=== PATIENT | female | born 1950 | race Caucasian/White ===

== ENCOUNTER → 2016-05-03 | Outpatient (CLI) | payer OTHER ==
[~2016-05-03] VITALS: Ht 166.4 cm; Wt 63.5 kg
[~2016-05-03] MED LIST: ABILIFY10 MG PO; ABILIFY5 MG PO; ADULT LOW DOSE81 M1 PO; ADVIL,NUPRIN,M200 MG PO; ADVIL200 MG PO; ALPRAZOLAM0.5 MG PO; ANTIOBIOTIC PO; ARIPIPRAZOLE5 MG PO; BACTRIM,SEPT1 TABLET PO; CHEWABLE-VITE1 EACH PO; COLACE100 MG PO; CYMBALTA60 MG PO; DIFLUCAN100 MG PO; DULOXETINE HCL60 MG PO; FOLIC ACID1 MG PO; KEPPRA500 MG PO; LEVAQUIN500 MG PO; MORPHINE SULFAT15 M1 PO; MOTRIN600 MG PO; NICORETTE2 M1 BC; NICOTINE PATCH1 EAC2 TD; OXYCODONE HCL15 MG PO; PANTOPRAZOLE SO40 MG PO; PROTONIX20 MG PO; PROTONIX40 MG PO; TYLENOL EXTRA500 MG PO; VITAMIN C1000 M1 PO; XANAX0.5 MG PO; XARELTO20 MG PO
[2016-05-03 11:14] LABS: EOSINOPHIL (%) 0.7 % (0-5); EOSINOPHIL COUNT 0.1 K/uL (0-0.3); HEMATOCRIT 34.4 % (36.0-46.0); IMMATURE GRANULOCYTE (%) 0.3 % (0.0-0.7); LYMPHOCYTE COUNT 1.5 K/uL (1.0-2.8); MCH 24.6 PG (29.0-34.0); MCHC 31.4 G/DL (30.0-36.0); MCV 78.4 FL (83-99); MONOCYTE (%) 6.4 % (3-12); MONOCYTE COUNT 0.8 K/uL (0-0.8); NEUTROPHIL (%) 81.2 % (45-76); NEUTROPHIL COUNT 10.6 K/uL (1.8-6.4); RBC DIS.WIDTH-CV 23.2 % (11.8-14.6); RBC DIS.WIDTH-SD 64.8 % (39-53); RED BLOOD COUNT 4.39 M/uL (3.80-5.20)
[2016-05-03 11:20] LABS: ANION GAP 16 MEQ/L (2-14); CHLORIDE 104 MEQ/L (99-109); POTASSIUM 4.6 MEQ/L (3.7-5.4); SAMPLE HEMOLYSIS CHECK 0; SAMPLE ICTERIC CHECK 0; SAMPLE LIPEMIA CHECK 0; SODIUM 138 MEQ/L (136-147)
[2016-05-03 11:26] LABS: GFR ESTIMATE (CALCULATED) > 59 mL/min/; GLUCOSE 108 mg/dL (70-99); UREA NITROGEN (BUN) 9 mg/dL (9-23)
[2016-05-03 12:04] LABS: MEAN PLAT.VOLUME 10.3 uM^3 (9.5-12.4); PLAT.SUFFICIENCY ADEQUATE; PLATELET COUNT 260 K/uL (156-360); USER ID CCL
== END | disposition home or self-care (01) ==
LOC: AMB 10:30
PROVIDERS: Anesthesiology
PROC: 0DB58ZX Excision of Esophagus, Via Natural or Artificial Opening Endoscopic, Diagnostic (ICD-10-PCS; principal; 2016-05-03)
DX: K22.2 Esophageal obstruction (principal); B37.81 Candidal esophagitis; K44.9 Diaphragmatic hernia without obstruction or gangrene; J44.9 Chronic obstructive pulmonary disease, unspecified; F17.200 Nicotine dependence, unspecified, uncomplicated; K21.9 Gastro-esophageal reflux disease without esophagitis
CPT/HCPCS: 80048; 85025; 88108; 88305; 88312; B4087

== ENCOUNTER 2017-03-15 10:07 | Day surgery (SDC) | payer OTHER ==
[~2017-03-15] VITALS: Ht 165.1 cm; Wt 62.1 kg
[~2017-03-15 10:07] MED LIST changes: -CHEWABLE-VITE1 EACH PO; +FIBER GUMMIES1 EACH PO; +OXYCODONE HCL10 MG PO; +WOMEN'S DAILY1 EAC2 PO
== END 2017-03-15 11:40 | disposition home or self-care (01) ==
LOC: PAIN 10:07 → SDC 10:15 → PAIN 11:40
DX: M47.812 Spondylosis without myelopathy or radiculopathy, cervical region (principal); M54.2 Cervicalgia; G89.29 Other chronic pain; M79.7 Fibromyalgia; M51.36 Other intervertebral disc degeneration, lumbar region; K21.0 Gastro-esophageal reflux disease with esophagitis; K44.9 Diaphragmatic hernia without obstruction or gangrene; D50.0 Iron deficiency anemia secondary to blood loss (chronic); Z86.718 Personal history of other venous thrombosis and embolism; M43.16 Spondylolisthesis, lumbar region; F17.210 Nicotine dependence, cigarettes, uncomplicated; Z88.0 Allergy status to penicillin
CPT/HCPCS: J1030; J2250; J3010; S0020

== ENCOUNTER 2017-03-24 13:32 | Day surgery (SDC) | payer OTHER ==
[~2017-03-24] VITALS: Ht 165.1 cm; Wt 62.1 kg
== END 2017-03-24 14:51 | disposition home or self-care (01) ==
LOC: PAIN 13:32 → SDC 14:15 → PAIN 14:51
DX: M47.812 Spondylosis without myelopathy or radiculopathy, cervical region (principal); M54.2 Cervicalgia; G89.29 Other chronic pain; M50.321 Other cervical disc degeneration at C4-C5 level; M43.16 Spondylolisthesis, lumbar region; M79.7 Fibromyalgia; M51.36 Other intervertebral disc degeneration, lumbar region; K21.0 Gastro-esophageal reflux disease with esophagitis; D50.0 Iron deficiency anemia secondary to blood loss (chronic); M85.80 Other specified disorders of bone density and structure, unspecified site; Z86.718 Personal history of other venous thrombosis and embolism; Z88.0 Allergy status to penicillin; Z79.891 Long term (current) use of opiate analgesic; F17.200 Nicotine dependence, unspecified, uncomplicated
CPT/HCPCS: J1030; J2250; J3010; S0020

== ENCOUNTER 2017-04-09 19:37 | Emergency (ER) | payer OTHER ==
[~2017-04-09] VITALS: Ht 162.6 cm; Wt 61.7 kg
[2017-04-09 21:28] LABS: ALBUMIN 3.4 g/dL (3.2-4.8); CHLORIDE 107 mEq/L (99-109); POTASSIUM 3.6 mEq/L (3.7-5.4); SODIUM 140 mEq/L (136-147)
[2017-04-09 21:31] LABS: GLUCOSE 125 mg/dL (70-99); TOTAL PROTEIN 7.3 g/dL (6.4-8.3)
[2017-04-09 21:31] LABS: HEMATOCRIT 34.3 % (36.0-46.0); HEMOGLOBIN 11.2 G/DL (11.9-15.5); MCH 26.2 PG (29.0-34.0); MCHC 32.7 G/DL (30.0-36.0); MCV 80.3 FL (83-99); PLATELET COUNT 341 K/uL (156-360); RBC DIS.WIDTH-SD 40.8 % (39-53); RED BLOOD COUNT 4.27 M/uL (3.80-5.20); WHITE BLOOD COUNT 15.2 K/uL (4.1-10.2)
[2017-04-09 21:32] LABS: TOTAL BILIRUBIN 0.2 mg/dL (0.0-1.0)
[2017-04-09 21:33] LABS: SERUM ETHYL ALCOHOL < 10 mg/dL
[2017-04-09 21:34] LABS: ALKALINE PHOSPHATASE 91 IU/L (3-129); CREATININE 0.7 mg/dL (0.6-1.3); GFR ESTIMATE (CALCULATED) > 59 mL/min/
[2017-04-09 21:35] LABS: UREA NITROGEN (BUN) 15 mg/dL (9-23)
[2017-04-09 21:36] LABS: AST (GOT) 10 IU/L (2-34)
[2017-04-09 21:37] LABS: ALT (GPT) 12 IU/L (3-49)
[2017-04-09] MEDS ORDERED: CARAFATE1 GM PO (23:21)
[2017-04-09] MEDS ORDERED: ZITHROMAX Z-PA250 MG PO (23:21)
[2017-04-09 23:30] VITALS: BP 95/66
[2017-04-14] MEDS ORDERED: ZITHROMAX Z-PA250 MG PO (13:44)
== END 2017-04-09 23:50 | disposition home or self-care (01) ==
LOC: EME → EDBD 19:37 → EME 23:50
PROVIDERS: Emergency Medicine
DX: G40.909 Epilepsy, unspecified, not intractable, without status epilepticus (principal); J20.9 Acute bronchitis, unspecified; K44.9 Diaphragmatic hernia without obstruction or gangrene; F17.200 Nicotine dependence, unspecified, uncomplicated; K21.9 Gastro-esophageal reflux disease without esophagitis; M79.7 Fibromyalgia; F32.9 Major depressive disorder, single episode, unspecified; F41.9 Anxiety disorder, unspecified; Z88.0 Allergy status to penicillin; Z88.5 Allergy status to narcotic agent
CPT/HCPCS: 71010; 80053; 83605; 85027; 93005; 99281; 99285; G0480; J7644

== ENCOUNTER 2017-04-12 04:14 | Emergency (ER) | payer OTHER ==
[~2017-04-12] VITALS: Ht 165.1 cm; Wt 59.0 kg
[~2017-04-12 04:14] MED LIST changes: +CARAFATE1 GM PO; +ZITHROMAX Z-PA250 MG PO
[2017-04-12 05:03] LABS: HEMATOCRIT 35.2 % (36.0-46.0); MCH 26.3 PG (29.0-34.0); MCHC 32.4 G/DL (30.0-36.0); MCV 81.1 FL (83-99); MEAN PLAT.VOLUME 10.6 uM^3 (9.5-12.4); PLATELET COUNT 336 K/uL (156-360); RBC DIS.WIDTH-SD 41.3 % (39-53); RED BLOOD COUNT 4.34 M/uL (3.80-5.20)
[2017-04-12 05:06] LABS: ADD MIUA? YES; BILIRUBIN NEGATIVE; BLOOD SMALL; COLOR YELLOW ((YELLOW)); GLUCOSE (STRIP) NEGATIVE; KETONES NEGATIVE; LEUKOCYTES NEGATIVE; NITRITE NEGATIVE; PROTEIN (STRIP) NEGATIVE; UROBILINOGEN 0.2 MG/DL (0.2-1.0)
[2017-04-12 05:15] LABS: BACTERIA RARE /HPF; EPITHELIAL CELLS 1+ /HPF; MUCUS TRACE /LPF; RED BLOOD CELLS 0-5 /HPF (0-5); UCUL ADDED? NO; WHITE BLOOD CELLS 0-5 /HPF (0-5)
[2017-04-12 05:16] LABS: CHLORIDE 106 mEq/L (99-109); POTASSIUM 3.9 mEq/L (3.7-5.4); SODIUM 137 mEq/L (136-147)
[2017-04-12 05:19] LABS: GLUCOSE 120 mg/dL (70-99)
[2017-04-12 05:20] LABS: ANION GAP 9 MEQ/L (2-14)
[2017-04-12 05:22] LABS: ALKALINE PHOSPHATASE 92 IU/L (3-129); GFR ESTIMATE (CALCULATED) > 59 mL/min/
[2017-04-12 05:23] LABS: UREA NITROGEN (BUN) 10 mg/dL (9-23)
[2017-04-12 05:26] LABS: LIPASE 6 U/L (1.0-51.0)
[2017-04-12 05:30] LABS: TOTAL BILIRUBIN 0.3 mg/dL (0.0-1.0)
[2017-04-12] MEDS ORDERED: ZOFRAN4 MG PO (06:53)
[2017-04-12 07:42] VITALS: BP 137/78
[2017-04-14] MEDS ORDERED: ZITHROMAX Z-PA250 MG PO (13:44)
== END 2017-04-12 07:43 | disposition home or self-care (01) ==
LOC: EME 04:14
DX: R11.2 Nausea with vomiting, unspecified (principal); N83.202 Unspecified ovarian cyst, left side; R19.7 Diarrhea, unspecified; M79.7 Fibromyalgia; K21.9 Gastro-esophageal reflux disease without esophagitis; F41.9 Anxiety disorder, unspecified; F32.9 Major depressive disorder, single episode, unspecified; F31.9 Bipolar disorder, unspecified; F17.200 Nicotine dependence, unspecified, uncomplicated; Z86.73 Personal history of transient ischemic attack (TIA), and cerebral infarction without residual deficits; Z88.0 Allergy status to penicillin; Z88.5 Allergy status to narcotic agent
CPT/HCPCS: 74177; 80053; 81003; 83690; 85027; J2765; J3010; S0028

== ENCOUNTER 2017-04-19 14:25 | Day surgery (SDC) | payer OTHER ==
[~2017-04-19] VITALS: Ht 165.1 cm; Wt 58.9 kg
[~2017-04-19 14:25] MED LIST changes: +ZOFRAN4 MG PO
== END 2017-04-19 15:50 | disposition home or self-care (01) ==
LOC: PAIN 14:25 → SDC 15:00 → PAIN 15:50
DX: M47.812 Spondylosis without myelopathy or radiculopathy, cervical region (principal); M54.2 Cervicalgia; G89.29 Other chronic pain; M79.7 Fibromyalgia; K21.9 Gastro-esophageal reflux disease without esophagitis; K21.0 Gastro-esophageal reflux disease with esophagitis; K44.9 Diaphragmatic hernia without obstruction or gangrene; G40.909 Epilepsy, unspecified, not intractable, without status epilepticus; Z86.718 Personal history of other venous thrombosis and embolism; F17.200 Nicotine dependence, unspecified, uncomplicated; Z79.891 Long term (current) use of opiate analgesic; Z88.0 Allergy status to penicillin
CPT/HCPCS: J1030; J2250; J3010; S0020

== ENCOUNTER 2017-04-26 13:24 | Day surgery (SDC) | payer OTHER ==
[~2017-04-26] VITALS: Ht 167 cm; Wt 59.0 kg
== END 2017-04-26 14:42 | disposition home or self-care (01) ==
LOC: PAIN 13:24 → SDC 14:00 → PAIN 14:00
DX: M47.812 Spondylosis without myelopathy or radiculopathy, cervical region (principal); M54.2 Cervicalgia; G89.29 Other chronic pain; K44.9 Diaphragmatic hernia without obstruction or gangrene; F31.9 Bipolar disorder, unspecified; M54.5 Low back pain; Z88.0 Allergy status to penicillin; M79.7 Fibromyalgia; K21.0 Gastro-esophageal reflux disease with esophagitis; G40.909 Epilepsy, unspecified, not intractable, without status epilepticus; Z86.718 Personal history of other venous thrombosis and embolism; Z86.73 Personal history of transient ischemic attack (TIA), and cerebral infarction without residual deficits; Z87.891 Personal history of nicotine dependence
CPT/HCPCS: J1030; J2250; J3010; S0020

== ENCOUNTER 2017-07-05 09:03 | Emergency (ER) | payer OTHER ==
[~2017-07-05] VITALS: Ht 165.1 cm; Wt 67.2 kg
[2017-07-05 10:00] LABS: HEMATOCRIT 24.5 % (36.0-46.0); HEMOGLOBIN 7.4 G/DL (11.9-15.5); MCH 23.1 PG (29.0-34.0); MCHC 30.2 G/DL (30.0-36.0); MCV 76.6 FL (83-99); PLATELET COUNT 324 K/uL (156-360); RBC DIS.WIDTH-CV 18.9 % (11.8-14.6); RBC DIS.WIDTH-SD 53.1 % (39-53); WHITE BLOOD COUNT 9.9 K/uL (4.1-10.2)
[2017-07-05 10:06] LABS: INTER. NORMALIZED RATIO 1.3
[2017-07-05 10:08] LABS: CHLORIDE 106 mEq/L (99-109); POTASSIUM 4.3 mEq/L (3.7-5.4); SODIUM 137 mEq/L (136-147)
[2017-07-05 10:09] LABS: GLUCOSE 122 mg/dL (70-99); PTT 30.7 SEC (25-37)
[2017-07-05 10:13] LABS: CREATININE 0.9 mg/dL (0.6-1.3); GFR ESTIMATE (CALCULATED) > 59 mL/min/
[2017-07-05 10:14] LABS: UREA NITROGEN (BUN) 14 mg/dL (9-23)
[2017-07-05] MEDS ORDERED: XARELTO15 MG PO (11:11)
[2017-07-05 11:30] VITALS: BP 111/70
== END 2017-07-05 11:38 | disposition home or self-care (01) ==
LOC: EME 09:03
PROVIDERS: Nurse Practitioner Acute Care
DX: I82.422 Acute embolism and thrombosis of left iliac vein (principal); D64.9 Anemia, unspecified; K21.9 Gastro-esophageal reflux disease without esophagitis; F41.9 Anxiety disorder, unspecified; Z86.718 Personal history of other venous thrombosis and embolism; Z79.01 Long term (current) use of anticoagulants; Z87.891 Personal history of nicotine dependence; Z88.0 Allergy status to penicillin; Z88.5 Allergy status to narcotic agent
CPT/HCPCS: 80048; 85027; 85610; 85730; 93971; 99281; 99284

== ENCOUNTER 2017-07-06 21:24 | Inpatient (IN) | payer OTHER ==
[~2017-07-06] VITALS: Ht 165.1 cm; Wt 70.0 kg
[~2017-07-06 21:24] MED LIST changes: +XARELTO15 MG PO
[2017-07-06 22:03] LABS: BASOPHIL (%) 0.7 % (0-1); BASOPHIL COUNT 0.1 K/uL (0-0.1); EOSINOPHIL (%) 4.6 % (0-5); EOSINOPHIL COUNT 0.4 K/uL (0-0.3); HEMATOCRIT 24.6 % (36.0-46.0); HEMOGLOBIN 7.3 G/DL (11.9-15.5); IMMATURE GRANULOCYTE (%) 0.3 % (0.0-0.7); LYMPHOCYTE (%) 15.3 % (15-42); LYMPHOCYTE COUNT 1.2 K/uL (1.0-2.8); MCH 22.8 PG (29.0-34.0); MCHC 29.7 G/DL (30.0-36.0); MCV 76.9 FL (83-99); MONOCYTE (%) 8.8 % (3-12); MONOCYTE COUNT 0.7 K/uL (0-0.8); NEUTROPHIL (%) 70.3 % (45-76); NEUTROPHIL COUNT 5.4 K/uL (1.8-6.4); PLATELET COUNT 334 K/uL (156-360); RBC DIS.WIDTH-CV 19.3 % (11.8-14.6); RBC DIS.WIDTH-SD 54.4 % (39-53); WHITE BLOOD COUNT 7.6 K/uL (4.1-10.2)
[2017-07-06 22:09] LABS: INTER. NORMALIZED RATIO 1.3
[2017-07-06 22:16] LABS: CHLORIDE 106 mEq/L (99-109); POTASSIUM 3.7 mEq/L (3.7-5.4); SODIUM 139 mEq/L (136-147)
[2017-07-06 22:18] LABS: GLUCOSE 98 mg/dL (70-99)
[2017-07-06 22:22] LABS: CREATININE 0.8 mg/dL (0.6-1.3); GFR ESTIMATE (CALCULATED) > 59 mL/min/
[2017-07-06 22:23] LABS: UREA NITROGEN (BUN) 13 mg/dL (9-23)
[2017-07-06 22:31] LABS: TROP-I INTERPRETATION NEGATIVE; TROPONIN-I < 0.01 ng/mL (0.0-0.30)
[2017-07-07] VITALS (7 sets, daily range): BP systolic 83–128; BP diastolic 47–75
[2017-07-07 08:31] LABS: HEMATOCRIT 25.7 % (36.0-46.0); HEMOGLOBIN 7.6 G/DL (11.9-15.5); MCV 78.6 FL (83-99); RETIC HGB EQUIVALENT 19.2 (28-36); RETICULOCYTE COUNT 1.8 % (0.5-1.8)
[2017-07-07 08:39] LABS: IRON 11 MCG/DL (35-150); TRANSFERRIN (TIBC) 241.8 mg/dL (215-380); TRANSFERRIN SATUR. 5 % (20-55)
[2017-07-07 09:25] LABS: FOLIC ACID (FOLATE) 21.9 NG/ML (5.0-22.0)
[2017-07-07] MEDS ORDERED: XARELTO20 MG PO (13:01)
[2017-07-07 13:07] LABS: FERRITIN 13 NG/ML (10-291)
[2017-07-07] MEDS ORDERED: SEROQUEL200 MG PO (20:12)
[2017-07-07] MEDS ORDERED: SINEQUAN10 MG PO (20:13)
[2017-07-08 03:18] VITALS: BP 103/65
[2017-07-08 07:51] VITALS: BP 123/57
[2017-07-08 08:25] LABS: HEMATOCRIT 26.5 % (36.0-46.0); HEMOGLOBIN 7.6 G/DL (11.9-15.5); MCH 22.6 PG (29.0-34.0); MCHC 28.7 G/DL (30.0-36.0); MCV 78.9 FL (83-99); NRBC (%) 0.3 /100 WBC (0-0); PLATELET COUNT 290 K/uL (156-360); RBC DIS.WIDTH-CV 19.4 % (11.8-14.6); RBC DIS.WIDTH-SD 55.3 % (39-53); RED BLOOD COUNT 3.36 M/uL (3.80-5.20); WHITE BLOOD COUNT 6.7 K/uL (4.1-10.2)
[2017-07-08 09:01] LABS: CHLORIDE 113 MEQ/L (99-109); CREATININE 0.6 MG/DL (0.6-1.3); GFR ESTIMATE (CALCULATED) > 59 mL/min/; GLUCOSE 123 mg/dL (70-99); POTASSIUM 3.8 MEQ/L (3.7-5.4); SODIUM 143 MEQ/L (136-147); UREA NITROGEN (BUN) 6 mg/dL (9-23)
[2017-07-08] MEDS ORDERED: LITHIUM CARBON300 M1 PO (11:44)
[2017-07-08 11:45] VITALS: BP 140/75
[2017-07-08 16:03] VITALS: BP 132/69
[2017-07-08 17:33] LABS: INTER. NORMALIZED RATIO 1.2
[2017-07-08 19:46] VITALS: BP 159/100
[2017-07-08 23:18] VITALS: BP 84/58
[2017-07-09 03:02] LABS: HEMATOCRIT 23.9 % (36.0-46.0); HEMOGLOBIN 7.2 G/DL (11.9-15.5); MCH 22.8 PG (29.0-34.0); MCHC 30.1 G/DL (30.0-36.0); MCV 75.6 FL (83-99); PLATELET COUNT 288 K/uL (156-360); RBC DIS.WIDTH-CV 18.9 % (11.8-14.6); RBC DIS.WIDTH-SD 52.6 % (39-53); RED BLOOD COUNT 3.16 M/uL (3.80-5.20); WHITE BLOOD COUNT 6.3 K/uL (4.1-10.2)
[2017-07-09 03:23] LABS: INTER. NORMALIZED RATIO 1.2
[2017-07-09 04:40] VITALS: BP 139/68
[2017-07-09 07:55] VITALS: BP 152/75
[2017-07-09 10:26] VITALS: BP 154/74
[2017-07-09 16:07] VITALS: BP 137/84
[2017-07-09 19:16] VITALS: BP 163/74
[2017-07-09 23:12] VITALS: BP 135/63
[2017-07-10 04:18] VITALS: BP 135/68
[2017-07-10 05:34] LABS: HEMATOCRIT 26.3 % (36.0-46.0); HEMOGLOBIN 7.9 G/DL (11.9-15.5); INTER. NORMALIZED RATIO 1.2; MCH 22.8 PG (29.0-34.0); MCV 75.8 FL (83-99); PLATELET COUNT 299 K/uL (156-360); RBC DIS.WIDTH-CV 18.9 % (11.8-14.6); RBC DIS.WIDTH-SD 51.8 % (39-53); RED BLOOD COUNT 3.47 M/uL (3.80-5.20)
[2017-07-10 05:37] LABS: PTT 59.8 SEC (25-37)
[2017-07-10 06:26] LABS: CHLORIDE 110 MEQ/L (99-109); CREATININE 0.6 MG/DL (0.6-1.3); GFR ESTIMATE (CALCULATED) > 59 mL/min/; GLUCOSE 112 mg/dL (70-99); POTASSIUM 3.7 MEQ/L (3.7-5.4); SODIUM 143 MEQ/L (136-147); UREA NITROGEN (BUN) 6 mg/dL (9-23)
[2017-07-10 08:23] VITALS: BP 158/81
[2017-07-10 11:13] VITALS: BP 144/68
[2017-07-10 15:32] VITALS: BP 169/79
[2017-07-10 19:26] VITALS: BP 140/77
[2017-07-11] VITALS (13 sets, daily range): BP systolic 127–188; BP diastolic 68–96
[2017-07-11 05:58] LABS: HEMATOCRIT 25.3 % (36.0-46.0); HEMOGLOBIN 7.4 G/DL (11.9-15.5); MCV 74.9 FL (83-99)
[2017-07-11 06:06] LABS: INTER. NORMALIZED RATIO 1.6
[2017-07-11 06:09] LABS: PTT 81.1 SEC (25-37)
[2017-07-12 03:26] VITALS: BP 114/56
[2017-07-12 07:33] LABS: INTER. NORMALIZED RATIO 2.3
[2017-07-12 07:35] VITALS: BP 118/68
[2017-07-12 07:36] LABS: PTT 78.3 SEC (25-37)
[2017-07-12 11:10] VITALS: BP 133/72
[2017-07-12] MEDS ORDERED: FERROUS SULFAT325 MG PO (11:31)
[2017-07-12] MEDS ORDERED: OXYCODONE HCL5 MG PO (11:34)
[2017-07-12] MEDS ORDERED: WARFARIN SODIU2.5 MG PO (11:34)
== END 2017-07-12 12:26 | disposition home health service (06) | DRG 300 ==
LOC: EME → EDBD 21:24 → EME 21:24 → EDOF 07-07 01:34 → 3EAST 07-07 01:34 → ENRESERV 07-07 01:37 → 3EAST 07-07 05:20
PROVIDERS: Emergency Medicine; Hospitalist; Internal Medicine; Physician Assistant
PROC: 30233N1 Transfusion of Nonautologous Red Blood Cells into Peripheral Vein, Percutaneous Approach (ICD-10-PCS; principal; 2017-07-11)
DX: I82.422 Acute embolism and thrombosis of left iliac vein (principal); F11.20 Opioid dependence, uncomplicated; I82.812 Embolism and thrombosis of superficial veins of left lower extremity; I82.442 Acute embolism and thrombosis of left tibial vein; I82.412 Acute embolism and thrombosis of left femoral vein; F31.9 Bipolar disorder, unspecified; M79.7 Fibromyalgia; J44.9 Chronic obstructive pulmonary disease, unspecified; I73.9 Peripheral vascular disease, unspecified; Z79.01 Long term (current) use of anticoagulants; Z86.718 Personal history of other venous thrombosis and embolism; D64.9 Anemia, unspecified; Z89.411 Acquired absence of right great toe; F17.210 Nicotine dependence, cigarettes, uncomplicated; K21.9 Gastro-esophageal reflux disease without esophagitis; F41.9 Anxiety disorder, unspecified; Z86.711 Personal history of pulmonary embolism
CPT/HCPCS: 80048; 82272; 82607; 82728; 82746; 83540; 83880; 84466; 84484; 85014; 85018; 85025; 85027; 85046; 85610; 85730; 86850; 86900; 86901; 86920; 93971; 99281; 99284; 99285; J7030; J7040; P9016

== ENCOUNTER 2017-07-16 15:46 | Emergency (ER) | payer OTHER ==
[~2017-07-16] VITALS: Ht 165.1 cm; Wt 66.5 kg
[~2017-07-16 15:46] MED LIST changes: +FERROUS SULFAT325 MG PO; +LITHIUM CARBON300 M1 PO; +OXYCODONE HCL5 MG PO; +SEROQUEL200 MG PO; +SINEQUAN10 MG PO; +WARFARIN SODIU2.5 MG PO
[2017-07-16 17:26] LABS: BASOPHIL (%) 0.6 % (0-1); BASOPHIL COUNT 0.1 K/uL (0-0.1); EOSINOPHIL (%) 2.5 % (0-5); EOSINOPHIL COUNT 0.3 K/uL (0-0.3); HEMOGLOBIN 8.7 G/DL (11.9-15.5); IMMATURE GRANULOCYTE (%) 0.6 % (0.0-0.7); LYMPHOCYTE COUNT 1.5 K/uL (1.0-2.8); MCH 22.8 PG (29.0-34.0); MCV 76.1 FL (83-99); MONOCYTE (%) 8.9 % (3-12); MONOCYTE COUNT 1.1 K/uL (0-0.8); NEUTROPHIL (%) 75.4 % (45-76); NEUTROPHIL COUNT 9.5 K/uL (1.8-6.4); PLATELET COUNT 372 K/uL (156-360); RBC DIS.WIDTH-CV 19.9 % (11.8-14.6); RBC DIS.WIDTH-SD 55.1 % (39-53); RED BLOOD COUNT 3.81 M/uL (3.80-5.20); WHITE BLOOD COUNT 12.6 K/uL (4.1-10.2)
[2017-07-16 17:33] LABS: INTER. NORMALIZED RATIO 1.7
[2017-07-16 17:36] LABS: CHLORIDE 102 mEq/L (99-109); POTASSIUM 4.4 mEq/L (3.7-5.4)
[2017-07-16 17:38] LABS: GLUCOSE 93 mg/dL (70-99); SODIUM 135 mEq/L (136-147)
[2017-07-16 17:39] LABS: PTT 30.4 SEC (25-37)
[2017-07-16 17:41] LABS: CREATININE 0.9 mg/dL (0.6-1.3); GFR ESTIMATE (CALCULATED) > 59 mL/min/
[2017-07-16 17:47] LABS: UREA NITROGEN (BUN) 21 mg/dL (9-23)
[2017-07-16 18:51] VITALS: BP 128/74
== END 2017-07-16 18:52 | disposition home or self-care (01) ==
LOC: EME 15:46
PROVIDERS: Emergency Medicine
DX: I82.402 Acute embolism and thrombosis of unspecified deep veins of left lower extremity (principal); R79.1 Abnormal coagulation profile; Z86.711 Personal history of pulmonary embolism; D64.9 Anemia, unspecified; Z79.01 Long term (current) use of anticoagulants; K21.9 Gastro-esophageal reflux disease without esophagitis; F41.9 Anxiety disorder, unspecified; Z89.411 Acquired absence of right great toe; Z88.5 Allergy status to narcotic agent; Z88.0 Allergy status to penicillin; Z87.891 Personal history of nicotine dependence
CPT/HCPCS: 80048; 85025; 85610; 85730; 99281; 99284

== ENCOUNTER 2017-08-08 12:16 | Inpatient (IN) | payer OTHER ==
[~2017-08-08] VITALS: Ht 166.4 cm; Wt 61.9 kg
[~2017-08-08 12:16] MED LIST changes: -LITHIUM CARBON300 M1 PO; +LITHIUM CARBON300 M2 PO
[2017-08-08 13:43] LABS: HEMATOCRIT 36.1 % (36.0-46.0); HEMOGLOBIN 10.9 G/DL (11.9-15.5); MCH 23.7 PG (29.0-34.0); MCHC 30.2 G/DL (30.0-36.0); MCV 78.6 FL (83-99); PLATELET COUNT 295 K/uL (156-360); RBC DIS.WIDTH-CV 22.4 % (11.8-14.6); RBC DIS.WIDTH-SD 63.2 % (39-53); RED BLOOD COUNT 4.59 M/uL (3.80-5.20); WHITE BLOOD COUNT 12.6 K/uL (4.1-10.2)
[2017-08-08 14:02] LABS: ALBUMIN 3.7 g/dL (3.2-4.8); CHLORIDE 112 mEq/L (99-109); POTASSIUM 3.7 mEq/L (3.7-5.4); SODIUM 144 mEq/L (136-147)
[2017-08-08 14:05] LABS: GLUCOSE 92 mg/dL (70-99); TOTAL PROTEIN 7.3 g/dL (6.4-8.3)
[2017-08-08 14:06] LABS: TOTAL BILIRUBIN 0.3 mg/dL (0.0-1.0)
[2017-08-08 14:08] LABS: CREATININE 0.8 mg/dL (0.6-1.3); GFR ESTIMATE (CALCULATED) > 59 mL/min/
[2017-08-08 14:09] LABS: ALKALINE PHOSPHATASE 115 IU/L (3-129); TROP-I INTERPRETATION NEGATIVE; TROPONIN-I < 0.01 ng/mL (0.0-0.30)
[2017-08-08 14:10] LABS: AST (GOT) 13 IU/L (2-34); UREA NITROGEN (BUN) 13 mg/dL (9-23)
[2017-08-08 14:12] LABS: ACETAMINOPHEN (TYLENOL) < 10 mcg/mL (10-30); ALT (GPT) 11 IU/L (3-49); SALICYLATE < 5.0 MG/DL (15-30)
[2017-08-08 14:16] LABS: APPEARANCE CLEAR ((CLEAR)); BILIRUBIN NEGATIVE; BLOOD NEGATIVE; COLOR YELLOW ((YELLOW)); GLUCOSE (STRIP) NEGATIVE; KETONES NEGATIVE; LEUKOCYTES NEGATIVE; NITRITE NEGATIVE; PROTEIN (STRIP) NEGATIVE; SPECIFIC GRAVITY 1.014 (1.000-1.030); UCUL ADDED? NO; UROBILINOGEN 0.2 MG/DL (0.2-1.0)
[2017-08-08 14:46] LABS: AMPHETAMINE NEGATIVE (500 ng/mL); BARBITURATES NEGATIVE (200 ng/mL); BENZODIAZEPINES PRESUMPTIVE POSITIVE (150 ng/mL); BUPRENORPHINE NEGATIVE (10 ng/mL); COCAINE NEGATIVE (150 ng/mL); METHADONE NEGATIVE (200 ng/mL); METHAMPHETAMINE NEGATIVE (500 ng/mL); OPIATES (MORPHINE) NEGATIVE (100 ng/mL); OXYCODONE NEGATIVE (100 ng/mL); PHENCYCLIDINE NEGATIVE (25 ng/mL); PROPOXYPHENE NEGATIVE (300 ng/mL); THC CANNABINOIDS PRESUMPTIVE POSITIVE (50 ng/mL); TRICYCLIC ANTIDEPRESSANTS NEGATIVE (300 ng/mL)
[2017-08-08 15:31] LABS: BENZODIAZEPINES, URINE SCREEN POSITIVE (200 ng/mL)
[2017-08-08] MEDS ORDERED: ABILIFY10 MG PO (17:00)
[2017-08-08] MEDS ORDERED: GABAPENTIN300 MG PO (17:05)
[2017-08-08] MEDS ORDERED: JANTOVEN3 MG PO (17:06)
[2017-08-08 17:13] LABS: INTER. NORMALIZED RATIO 1.2
[2017-08-09 00:36] VITALS: BP 101/57
[2017-08-09 07:18] LABS: HEMATOCRIT 35.4 % (36.0-46.0); HEMOGLOBIN 10.4 G/DL (11.9-15.5); MCH 23.1 PG (29.0-34.0); MCHC 29.4 G/DL (30.0-36.0); MCV 78.7 FL (83-99); PLATELET COUNT 276 K/uL (156-360); RBC DIS.WIDTH-CV 22.6 % (11.8-14.6); RBC DIS.WIDTH-SD 63.9 % (39-53); WHITE BLOOD COUNT 8.9 K/uL (4.1-10.2)
[2017-08-09 07:24] LABS: BASOPHIL (%) 0.7 % (0-1); BASOPHIL COUNT 0.1 K/uL (0-0.1); EOSINOPHIL (%) 3.6 % (0-5); EOSINOPHIL COUNT 0.3 K/uL (0-0.3); IMMATURE GRANULOCYTE (%) 0.3 % (0.0-0.7); LYMPHOCYTE COUNT 1.5 K/uL (1.0-2.8); MONOCYTE (%) 6.3 % (3-12); MONOCYTE COUNT 0.6 K/uL (0-0.8); NEUTROPHIL (%) 72.1 % (45-76); NEUTROPHIL COUNT 6.4 K/uL (1.8-6.4)
[2017-08-09 07:30] VITALS: BP 137/70
[2017-08-09 07:42] LABS: CHLORIDE 114 MEQ/L (99-109); CREATININE 0.6 MG/DL (0.6-1.3); GFR ESTIMATE (CALCULATED) > 59 mL/min/; GLUCOSE 93 mg/dL (70-99); POTASSIUM 3.9 MEQ/L (3.7-5.4); SODIUM 144 MEQ/L (136-147); UREA NITROGEN (BUN) 7 mg/dL (9-23)
[2017-08-09] MEDS ORDERED: OXYCODONE HCL10 MG PO (11:51)
[2017-08-09 13:49] LABS: INTER. NORMALIZED RATIO 1.2
[2017-08-09 20:21] VITALS: BP 121/58
[2017-08-09 23:24] VITALS: BP 102/51
[2017-08-10 05:54] LABS: BASOPHIL (%) 0.8 % (0-1); BASOPHIL COUNT 0.1 K/uL (0-0.1); EOSINOPHIL (%) 3.2 % (0-5); EOSINOPHIL COUNT 0.3 K/uL (0-0.3); HEMATOCRIT 33.6 % (36.0-46.0); HEMOGLOBIN 9.9 G/DL (11.9-15.5); IMMATURE GRANULOCYTE (%) 0.3 % (0.0-0.7); LYMPHOCYTE (%) 20.4 % (15-42); LYMPHOCYTE COUNT 1.9 K/uL (1.0-2.8); MCH 23.2 PG (29.0-34.0); MCHC 29.5 G/DL (30.0-36.0); MCV 78.9 FL (83-99); MONOCYTE (%) 6.7 % (3-12); MONOCYTE COUNT 0.6 K/uL (0-0.8); NEUTROPHIL (%) 68.6 % (45-76); NEUTROPHIL COUNT 6.2 K/uL (1.8-6.4); PLATELET COUNT 291 K/uL (156-360); RBC DIS.WIDTH-CV 22.2 % (11.8-14.6); RBC DIS.WIDTH-SD 62.6 % (39-53); RED BLOOD COUNT 4.26 M/uL (3.80-5.20); WHITE BLOOD COUNT 9.1 K/uL (4.1-10.2)
[2017-08-10 06:19] LABS: INTER. NORMALIZED RATIO 1.2
[2017-08-10 06:26] LABS: CHLORIDE 112 MEQ/L (99-109); CREATININE 0.7 MG/DL (0.6-1.3); GFR ESTIMATE (CALCULATED) > 59 mL/min/; GLUCOSE 78 mg/dL (70-99); POTASSIUM 3.8 MEQ/L (3.7-5.4); SODIUM 143 MEQ/L (136-147); UREA NITROGEN (BUN) 6 mg/dL (9-23)
[2017-08-10 06:58] VITALS: BP 124/76
[2017-08-10 15:40] VITALS: BP 129/69
[2017-08-11 00:36] VITALS: BP 96/54
[2017-08-11 03:53] VITALS: BP 135/60
[2017-08-11 06:12] LABS: BASOPHIL (%) 1.1 % (0-1); BASOPHIL COUNT 0.1 K/uL (0-0.1); EOSINOPHIL (%) 3.7 % (0-5); EOSINOPHIL COUNT 0.2 K/uL (0-0.3); HEMOGLOBIN 10.7 G/DL (11.9-15.5); IMMATURE GRANULOCYTE (%) 0.2 % (0.0-0.7); LYMPHOCYTE (%) 23.5 % (15-42); LYMPHOCYTE COUNT 1.5 K/uL (1.0-2.8); MCH 23.6 PG (29.0-34.0); MCHC 29.7 G/DL (30.0-36.0); MCV 79.3 FL (83-99); MONOCYTE (%) 8.6 % (3-12); MONOCYTE COUNT 0.6 K/uL (0-0.8); NEUTROPHIL (%) 62.9 % (45-76); NEUTROPHIL COUNT 4.1 K/uL (1.8-6.4); PLATELET COUNT 257 K/uL (156-360); RBC DIS.WIDTH-CV 22.4 % (11.8-14.6); RBC DIS.WIDTH-SD 63.6 % (39-53); RED BLOOD COUNT 4.54 M/uL (3.80-5.20); WHITE BLOOD COUNT 6.5 K/uL (4.1-10.2)
[2017-08-11 06:26] LABS: INTER. NORMALIZED RATIO 1.2
[2017-08-11 06:47] LABS: CHLORIDE 109 MEQ/L (99-109); CREATININE 0.7 MG/DL (0.6-1.3); GFR ESTIMATE (CALCULATED) > 59 mL/min/; GLUCOSE 86 mg/dL (70-99); POTASSIUM 4.1 MEQ/L (3.7-5.4); SODIUM 141 MEQ/L (136-147); UREA NITROGEN (BUN) 7 mg/dL (9-23)
[2017-08-11 07:27] VITALS: BP 114/68
[2017-08-11 15:50] VITALS: BP 133/80
[2017-08-11] MEDS ORDERED: NICOTINE PATCH1 EAC2 TD (16:00)
[2017-08-11] MEDS ORDERED: COUMADIN2 MG PO (16:01)
[2017-08-11] MEDS ORDERED: OXYCODONE HCL5 MG PO (16:04)
[2017-08-11] MEDS ORDERED: LOVENOX60 MG/0.6 SC (16:04)
== END 2017-08-11 19:34 | DRG 918 ==
LOC: EME 12:16 → EDOF 16:25 → 5EAST 16:25 → ENRESERV 16:37 → 5EAST 20:11
PROVIDERS: Emergency Medicine Emergency Medical Services; Hospitalist; Internal Medicine; Nurse Practitioner Adult Health
DX: T42.4X1A Poisoning by benzodiazepines, accidental (unintentional), initial encounter (principal); D64.9 Anemia, unspecified; F11.20 Opioid dependence, uncomplicated; F31.9 Bipolar disorder, unspecified; I10 Essential (primary) hypertension; I73.9 Peripheral vascular disease, unspecified; J32.9 Chronic sinusitis, unspecified; J44.9 Chronic obstructive pulmonary disease, unspecified; K21.9 Gastro-esophageal reflux disease without esophagitis; K22.70 Barrett's esophagus without dysplasia; M79.7 Fibromyalgia; F41.9 Anxiety disorder, unspecified; R79.1 Abnormal coagulation profile; T45.515A Adverse effect of anticoagulants, initial encounter; Z79.01 Long term (current) use of anticoagulants; Z86.711 Personal history of pulmonary embolism; Z86.718 Personal history of other venous thrombosis and embolism; Z86.73 Personal history of transient ischemic attack (TIA), and cerebral infarction without residual deficits; Z87.891 Personal history of nicotine dependence; Z89.411 Acquired absence of right great toe; Z91.14 Patient's other noncompliance with medication regimen; Z88.0 Allergy status to penicillin; Z88.5 Allergy status to narcotic agent; Z95.828 Presence of other vascular implants and grafts
CPT/HCPCS: 36415; 70450; 70551; 71045; 80048; 80053; 81003; 84484; 84999; 85025; 85027; 85610; 93005; 97530 GO; 99202; 99281; 99285; G0480; J1650; J7040

== ENCOUNTER 2017-08-14 22:24 | Emergency (ER) | payer OTHER ==
[~2017-08-14] VITALS: Ht 157.5 cm; Wt 62.3 kg
[~2017-08-14 22:24] MED LIST changes: +COUMADIN2 MG PO; +GABAPENTIN300 MG PO; +JANTOVEN3 MG PO; +LOVENOX60 MG/0.6 SC
[2017-08-14 22:56] LABS: HEMATOCRIT 32.4 % (36.0-46.0); HEMOGLOBIN 9.9 G/DL (11.9-15.5); MCHC 30.6 G/DL (30.0-36.0); MCV 78.6 FL (83-99); PLATELET COUNT 251 K/uL (156-360); RBC DIS.WIDTH-CV 21.9 % (11.8-14.6); RBC DIS.WIDTH-SD 62.8 % (39-53); RED BLOOD COUNT 4.12 M/uL (3.80-5.20); WHITE BLOOD COUNT 9.1 K/uL (4.1-10.2)
[2017-08-14 23:07] LABS: ALBUMIN 3.7 g/dL (3.2-4.8); CHLORIDE 105 mEq/L (99-109); POTASSIUM 3.5 mEq/L (3.7-5.4); SODIUM 134 mEq/L (136-147)
[2017-08-14 23:09] LABS: GLUCOSE 98 mg/dL (70-99); TOTAL PROTEIN 7.3 g/dL (6.4-8.3)
[2017-08-14 23:12] LABS: SERUM ETHYL ALCOHOL < 10 mg/dL
[2017-08-14 23:13] LABS: ALKALINE PHOSPHATASE 106 IU/L (3-129); GFR ESTIMATE (CALCULATED) > 59 mL/min/
[2017-08-14 23:14] LABS: AST (GOT) 15 IU/L (2-34); UREA NITROGEN (BUN) 16 mg/dL (9-23)
[2017-08-14 23:16] LABS: ALT (GPT) 13 IU/L (3-49)
[2017-08-14 23:20] LABS: TOTAL BILIRUBIN 0.2 mg/dL (0.0-1.0)
[2017-08-15 01:32] LABS: APPEARANCE CLEAR ((CLEAR)); BILIRUBIN NEGATIVE; BLOOD NEGATIVE; COLOR YELLOW ((YELLOW)); GLUCOSE (STRIP) NEGATIVE; KETONES NEGATIVE; LEUKOCYTES NEGATIVE; NITRITE NEGATIVE; PROTEIN (STRIP) NEGATIVE; SPECIFIC GRAVITY 1.006 (1.000-1.030); UCUL ADDED? NO; UROBILINOGEN 0.2 MG/DL (0.2-1.0)
[2017-08-15 01:42] LABS: AMPHETAMINE NEGATIVE (500 ng/mL); BARBITURATES NEGATIVE (200 ng/mL); BENZODIAZEPINES NEGATIVE (150 ng/mL); BUPRENORPHINE NEGATIVE (10 ng/mL); COCAINE NEGATIVE (150 ng/mL); METHADONE NEGATIVE (200 ng/mL); METHAMPHETAMINE NEGATIVE (500 ng/mL); OPIATES (MORPHINE) NEGATIVE (100 ng/mL); OXYCODONE PRESUMPTIVE POSITIVE (100 ng/mL); PHENCYCLIDINE NEGATIVE (25 ng/mL); PROPOXYPHENE NEGATIVE (300 ng/mL); THC CANNABINOIDS NEGATIVE (50 ng/mL); TRICYCLIC ANTIDEPRESSANTS PRESUMPTIVE POSITIVE (300 ng/mL)
[2017-08-15 03:14] VITALS: BP 156/93
== END 2017-08-15 03:16 | disposition home or self-care (01) ==
LOC: EME 22:24
DX: R41.82 Altered mental status, unspecified (principal); R47.81 Slurred speech; R41.0 Disorientation, unspecified; Z79.899 Other long term (current) drug therapy; M79.7 Fibromyalgia; K21.9 Gastro-esophageal reflux disease without esophagitis; F41.9 Anxiety disorder, unspecified; Z86.718 Personal history of other venous thrombosis and embolism; Z86.711 Personal history of pulmonary embolism; F17.200 Nicotine dependence, unspecified, uncomplicated; Z88.0 Allergy status to penicillin; Z88.5 Allergy status to narcotic agent
CPT/HCPCS: 70450; 71046; 80053; 81003; 85027; 99281; 99285; G0480; J7120